=== PATIENT | male | born 1945 | race Caucasian/White ===

== ENCOUNTER 2018-01-10 12:03 | Emergency (ER) | payer MEDICARE, OTHER ==
[2018-01-10] MEDS ORDERED: Aspirin 81 MG Tab.Chew PO ONE (12:14)
[2018-01-10] MEDS: Nitroglycerin 0.4 MG Tab.SL SL PRN ×2 (13:40→14:18)
--- NOTE | 2018-01-10 14:57 | EDM.PDOC ---
ED HPI GENERAL MEDICAL PROBLEM - General Chief Complaint: Chest Pain Stated Complaint: CHEST PAIN Time Seen by Provider: 01/10/18 14:45 Source of Information: Reports: Patient History Limitations: Reports: No Limitations - History of Present Illness INITIAL COMMENTS - FREE TEXT/NARRATIVE: PT IS HAVING EPISODES OF LEFT SIDED CHEST PAIN. tHIS DID COME AND GO. hE WAS PAINFREE ON ARRIVAL. hE HAS NOT HAD A mI BUT HE HAS HAD A STROKE AND DID HAVE SOME SORT OF A STENT PLACED AFTER HE HAD THE STROKE. Onset: Today, Other (PAIN STARTED THIS AM. ) Duration: Hour(s): Location: Reports: Chest Quality: Reports: Pressure, Sharp Associated Symptoms: Reports: Chest Pain, Shortness of Breath Denies Pain Score (Numeric/FACES): 3 - Related Data Allergies Allergy/AdvReac Type Severity Reaction Status Date / Time Iodinated Contrast- Oral and Allergy Hives Verified 01/10/18 12:14 IV Dye iodixanol Allergy Rash Verified 01/10/18 12:14 morphine Allergy Cannot Verified 01/10/18 12:14 Remember Home Meds: Home Meds Aspirin [Halfprin] 81 mg PO DAILY 01/10/18 [History] Clopidogrel [Plavix] 1 tab PO DAILY 01/10/18 [History] Doxazosin [Doxazosin Mesylate] 8 mg PO DAILY 01/10/18 [History] Lisinopril 25 mg PO DAILY 01/10/18 [History] atorvaSTATin [Lipitor] 40 mg PO BEDTIME 01/10/18 [History] Past Medical History Cardiovascular History: Reports: High Cholesterol, Hypertension Genitourinary History: Reports: Renal Calculus Neurological History: Reports: CVA, Other (See Below) 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 - Infectious Disease History Infectious Disease History: Reports: Chicken Pox, Measles, Mumps - Past Surgical History HEENT Surgical History: Reports: Tonsillectomy GI Surgical History: Reports: Colonoscopy Male Surgical History: Reports: Lithotripsy (ESWL) Social & Family History - Tobacco Use Smoking Status *Q: Former Smoker Years of Tobacco use: 43 Packs/Tins Daily: 1.5 Used Tobacco, but Quit: Yes Month/Year Tobacco Last Used: 2004 Second Hand Smoke Exposure: No - Caffeine Use Caffeine Use: Reports: Coffee, Soda - Alcohol Use Days Per Week of Alcohol Use: 7 Number of Drinks Per Day: 3 Total Drinks Per Week: 21 - Recreational Drug Use Recreational Drug Use: No ED ROS GENERAL - Review of Systems Review Of Systems: See Below Constitutional: Reports: No Symptoms HEENT: Reports: No Symptoms Respiratory: Reports: No Symptoms Cardiovascular: Reports: Chest Pain Endocrine: Reports: No Symptoms GI/Abdominal: Reports: No Symptoms : Reports: No Symptoms Musculoskeletal: Reports: No Symptoms ED EXAM, GENERAL - Physical Exam Exam: See Below Free Text/Narrative:: Pt arrived having left ided chest pain. He did till the garden yesterday. He had chest pain this am and he went out and planted the garden and he came in and he had another episode of chest pain. This was different from anything he had before. Exam Limited By: No Limitations General Appearance: Alert, Mild Distress Ears: Normal TMs Nose: Normal Inspection Throat/Mouth: Normal Inspection Head: Atraumatic Neck: Normal Inspection Respiratory/Chest: No Respiratory Distress Cardiovascular: Regular Rate, Rhythm GI/Abdominal: Soft, Non-Tender (Male) Exam: Deferred Rectal (Males) Exam: Deferred Back Exam: Normal Inspection Extremities: Normal Inspection Neurological: Alert, Oriented, Normal Cognition Psychiatric: Normal Affect Course - Vital Signs Last Recorded V/S: Last Vital Signs Temp 36.4 C 01/10/18 12:13 Pulse 65 01/10/18 14:49 Resp 11 L 01/10/18 14:49 BP 160/81 H 01/10/18 14:49 Pulse Ox 96 01/10/18 14:49 - Orders/Labs/Meds Orders: Active Orders 24 hr Category Date Time Status EKG Documentation Completion [RC] ASDIRECTED Care 01/10/18 12:13 Active Chest 1V Frontal [CR] Stat Exams 01/10/18 14:48 Taken Nitroglycerin [Nitrostat] Med 01/10/18 12:14 Active 0.4 mg SL Q5M PRN EKG 12 Lead [EK] Routine Ther 01/10/18 12:13 Ordered Medication Orders Nitroglycerin (Nitrostat) 0.4 mg SL Q5M PRN PRN Reason: Chest Pain Last Admin: 01/10/18 14:18 Dose: 0.4 mg Admin: 01/10/18 13:40 Dose: 0.4 mg Labs: Laboratory Tests 05/29/18 05/29/18 05/29/18 Range/Units 12:15 12:15 12:15 WBC 7.1 (4.5-11.0) K/uL RBC 5.14 (4.30-5.90) M/uL Hgb 16.1 H (12.0-15.0) g/dL Hct 46.1 (40.0-54.0) % MCV 90 (80-98) fL MCH 31 (27-31) pg MCHC 35 (32-36) % Plt Count 137 L (150-400) K/uL Neut % (Auto) 66 (36-66) % Lymph % (Auto) 24 (24-44) % Catahoula % (Auto) 10 H (2-6) % Eos % (Auto) 1 L (2-4) % Baso % (Auto) 0 (0-1) % Sodium 141 (140-148) mmol/L Potassium 4.0 (3.6-5.2) mmol/L Chloride 105 (100-108) mmol/L Carbon Dioxide 23 (21-32) mmol/L Anion Gap 13.2 (5.0-14.0) mmol/L BUN 15 (7-18) mg/dL Creatinine 1.2 (0.8-1.3) mg/dL Est Cr Clr Drug Dosing 48.74 mL/min Estimated GFR (MDRD) 59 L (>60) Glucose 110 H (74-106) mg/dL Calcium 8.9 (8.5-10.1) mg/dL Total Bilirubin 0.7 (0.2-1.0) mg/dL AST 24 (15-37) U/L ALT 35 (12-78) U/L Alkaline Phosphatase 79 (46-116) U/L Creatine Kinase 80 (39-308) U/L Troponin I < 0.017 (0.000-0.056) ng/mL Total Protein 6.8 (6.4-8.2) g/dL Albumin 3.7 (3.4-5.0) g/dL Globulin 3.1 (2.3-3.5) g/dL Albumin/Globulin Ratio 1.2 (1.2-2.2) 01/10/18 Range/Units 14:54 WBC (4.5-11.0) K/uL RBC (4.30-5.90) M/uL Hgb (12.0-15.0) g/dL Hct (40.0-54.0) % MCV (80-98) fL MCH (27-31) pg MCHC (32-36) % Plt Count (150-400) K/uL Neut % (Auto) (36-66) % Lymph % (Auto) (24-44) % Catahoula % (Auto) (2-6) % Eos % (Auto) (2-4) % Baso % (Auto) (0-1) % Sodium (140-148) mmol/L Potassium (3.6-5.2) mmol/L Chloride (100-108) mmol/L Carbon Dioxide (21-32) mmol/L Anion Gap (5.0-14.0) mmol/L BUN (7-18) mg/dL Creatinine (0.8-1.3) mg/dL Est Cr Clr Drug Dosing mL/min Estimated GFR (MDRD) (>60) Glucose (74-106) mg/dL Calcium (8.5-10.1) mg/dL Total Bilirubin (0.2-1.0) mg/dL AST (15-37) U/L ALT (12-78) U/L Alkaline Phosphatase (46-116) U/L Creatine Kinase (39-308) U/L Troponin I < 0.017 (0.000-0.056) ng/mL Total Protein (6.4-8.2) g/dL Albumin (3.4-5.0) g/dL Globulin (2.3-3.5) g/dL Albumin/Globulin Ratio (1.2-2.2) Meds: Medications Generic Name Dose Route Start Last Admin Trade Name Freq PRN Reason Stop Dose Admin Nitroglycerin 0.4 mg 01/10/18 12:14 01/10/18 14:18 Nitrostat SL 0.4 mg Q5M PRN Administration Chest Pain Discontinued Medications Generic Name Dose Route Start Last Admin Trade Name Freq PRN Reason Stop Dose Admin Aspirin 324 mg 01/10/18 12:14 01/10/18 13:17 Aspirin PO 01/10/18 12:15 324 mg ONETIME ONE Administration - Re-Assessments/Exams Free Text/Narrative Re-Assessment/Exam: 01/10/18 16:04 pt arrived and at that time was pain free. He has not had reoccurrence of chest pain. He has had 2 sets of enzymes which were neg. His ekg reveals old changes. Departure - Departure Time of Disposition: 16:05 Disposition: Home, Self-Care 01 Condition: Fair Clinical Impression: Atypical chest pain Referrals: PCP,None [Primary Care Provider] - Forms: ED Department Discharge Additional Instructions: STRESS TEST TuesdayJanuary AT 0915 AM REGISTER AT HOSPITAL AT 900 AM Care Plan Goals: rtc if pt has recurrent pain. Low activity until pt has the stress test. tylenol or motrin for the chest aching. Cont other meds. - My Orders Last 24 Hours: My Active Orders 01/10/18 12:13 EKG Documentation Completion [RC] ASDIRECTED EKG 12 Lead [EK] Routine 01/10/18 12:14 Nitroglycerin [Nitrostat] 0.4 mg SL Q5M PRN 01/10/18 14:48 Chest 1V Frontal [CR] Stat - Assessment/Plan Last 24 Hours: My Active Orders 01/10/18 12:13 EKG Documentation Completion [RC] ASDIRECTED EKG 12 Lead [EK] Routine 01/10/18 12:14 Nitroglycerin [Nitrostat] 0.4 mg SL Q5M PRN 01/10/18 14:48 Chest 1V Frontal [CR] Stat
--- NOTE | 2018-01-11 08:49 | CR ---
Chest 1V Frontal FINDINGS: The heart and vascular structures are normal in appearance. No infiltrates or effusions are demonstrated. The skeletal structures are unremarkable. IMPRESSION: Negative exam.
== END 2018-01-10 16:25 | disposition home or self-care (01) ==
LOC: JP.ED 12:03
DX: R07.89 Other chest pain (principal); I10 Essential (primary) hypertension; E78.00 Pure hypercholesterolemia, unspecified; Z79.82 Long term (current) use of aspirin; Z79.899 Other long term (current) drug therapy; Z87.891 Personal history of nicotine dependence; Z91.041 Radiographic dye allergy status; Z88.5 Allergy status to narcotic agent
CPT/HCPCS: 36415; 71045; 80053; 82550; 84484; 85025; 93005; 99285; A9270

== ENCOUNTER 2019-02-28 09:25 | Emergency (ER) | payer MEDICARE ==
--- NOTE | 2019-02-28 11:23 | EDM.PDOC ---
ED HPI GENERAL MEDICAL PROBLEM - General Chief Complaint: General Stated Complaint: GROIN AREA PAINFUL HAD TEST HERE Time Seen by Provider: 02/28/19 09:55 Source of Information: Reports: Patient History Limitations: Reports: No Limitations - History of Present Illness INITIAL COMMENTS - FREE TEXT/NARRATIVE: 73-year-old male with worsening pain and swelling of the right testicle over the past several weeks. He's had some symptoms for the past 4 months but is progressively worse over the past several weeks. He had an ultrasound of the testicle yesterday, and has a referral to urology in 1 week. He is worse today than he was yesterday and he is "not going to make it". No fevers or chills. Onset: Gradual Duration: Week(s): Associated Symptoms: Reports: No Other Symptoms Right Groin Pain Score (Numeric/FACES): 5 - Related Data Allergies Allergy/AdvReac Type Severity Reaction Status Date / Time Iodinated Contrast- Oral and Allergy Hives Verified 02/28/19 09:45 IV Dye iodixanol Allergy Rash Verified 02/28/19 09:45 morphine Allergy Cannot Verified 02/28/19 09:45 Remember Home Meds: Home Meds Aspirin [Halfprin] 81 mg PO DAILY 01/10/18 [History] Clopidogrel [Plavix] 1 tab PO DAILY 01/10/18 [History] Doxazosin [Doxazosin Mesylate] 8 mg PO DAILY 01/10/18 [History] Lisinopril 25 mg PO DAILY 01/10/18 [History] atorvaSTATin [Lipitor] 40 mg PO BEDTIME 01/10/18 [History] Past Medical History HEENT History: Reports: None Cardiovascular History: Reports: High Cholesterol, Hypertension Gastrointestinal History: Reports: None Genitourinary History: Reports: Renal Calculus Neurological History: Reports: CVA, Other (See Below) 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 Hematologic History: Reports: Anticoagulation Therapy - Infectious Disease History Infectious Disease History: Reports: Chicken Pox, Measles, Mumps - Past Surgical History Head Surgeries/Procedures: Reports: None HEENT Surgical History: Reports: Tonsillectomy Cardiovascular Surgical History: Reports: None GI Surgical History: Reports: Colonoscopy Male Surgical History: Reports: Lithotripsy (ESWL) Neurological Surgical History: Reports: None Dermatological Surgical History: Reports: None Social & Family History - Tobacco Use Smoking Status *Q: Former Smoker Used Tobacco, but Quit: Yes Month/Year Tobacco Last Used: 1988 Second Hand Smoke Exposure: No - Caffeine Use Caffeine Use: Reports: Coffee - Alcohol Use Days Per Week of Alcohol Use: 7 Number of Drinks Per Day: 2 Total Drinks Per Week: 14 - Recreational Drug Use Recreational Drug Use: No ED ROS GENERAL - Review of Systems Review Of Systems: See Below Constitutional: Denies: Fever, Chills Respiratory: Denies: Shortness of Breath GI/Abdominal: Reports: Abdominal Pain (Starting to develop some right lower quadrant discomfort) ED EXAM, GENERAL - Physical Exam Exam: See Below Exam Limited By: No Limitations General Appearance: Alert, No Apparent Distress (Looks uncomfortable but not distressed) Respiratory/Chest: No Respiratory Distress (Male) Exam: Other (Patient has a large firm mildly erythematous right testicle and scrotum with tenderness to palpation in the groin but no warmth.) Skin Exam: Warm, Dry Course - Vital Signs Last Recorded V/S: Last Vital Signs Temp 96.2 F 02/28/19 09:48 Pulse 89 02/28/19 09:48 Resp 18 02/28/19 09:48 BP 151/71 H 02/28/19 09:48 Pulse Ox 98 02/28/19 09:48 - Re-Assessments/Exams Free Text/Narrative Re-Assessment/Exam: 02/28/19 13:23 Scrotal ultrasound from yesterday was reviewed. He has a significant hydrocele and spermatocele with swelling of the epididymis but no increased vascularization or evidence of infection. His case was discussed with urology, he was given 600 mg ibuprofen No. 30, and 10 hydrocodone for extra pain control and the urology department will call him if they can get him in sooner. Departure - Departure Time of Disposition: 11:29 Disposition: Home, Self-Care 01 Clinical Impression: Hydrocele, right, Testicular pain, right - Discharge Information Instructions: Hydrocele, Adult Referrals: PCP,None [Primary Care Provider] - Forms: ED Department Discharge Care Plan Goals: Take ibuprofen on a regular basis and add stronger pain medication if needed. You should be hearing from the urology department regarding moving up your scheduled appointment.
== END 2019-02-28 11:29 | disposition home or self-care (01) ==
LOC: JP.ED 09:25
DX: N50.811 Right testicular pain (principal); N43.3 Hydrocele, unspecified; E78.00 Pure hypercholesterolemia, unspecified; I10 Essential (primary) hypertension; Z91.041 Radiographic dye allergy status; Z88.5 Allergy status to narcotic agent; Z79.82 Long term (current) use of aspirin; Z79.02 Long term (current) use of antithrombotics/antiplatelets; Z79.899 Other long term (current) drug therapy; Z87.442 Personal history of urinary calculi; Z86.73 Personal history of transient ischemic attack (TIA), and cerebral infarction without residual deficits; Z79.01 Long term (current) use of anticoagulants; Z87.891 Personal history of nicotine dependence
CPT/HCPCS: 99283

== ENCOUNTER 2022-01-17 22:03 | Inpatient (IN) | payer MEDICARE, OTHER ==
[2022-01-17 23:22] LABS: TROPONIN I HIGH SENSITIVITY 782.5 pg/mL (<=60.3)
[2022-01-17] MEDS ORDERED: Heparin Sodium/D5W 25,000 UNITS/500 ML BAG IV SCH (23:45)
[2022-01-17] MEDS ORDERED: Nitroglycerin/D5W 25 MG/250 ML BOTTLE IV SCH (23:45)
[2022-01-17] MEDS ORDERED: Aspirin 81 MG Tab.Chew PO ONE (23:46)
[2022-01-17] MEDS ORDERED: Heparin Sodium 5,000 Units/ML Vial IVPUSH ONE (23:47)
[2022-01-18] MEDS ORDERED: Sodium Chloride 0.9% 10 ML Syringe FLUSH PRN (01:21)
[2022-01-18] MEDS ORDERED: Acetaminophen 325 MG Tab PO PRN (01:21)
[2022-01-18 02:01] LABS: CORONAVIRUS COVID-19 NAA NEGATIVE (NEGATIVE)
[2022-01-18] MEDS ORDERED: Lisinopril 20 MG Tab PO SCH (09:00)
[2022-01-18] MEDS ORDERED: Clopidogrel 75 MG Tab PO SCH (09:00)
[2022-01-18] MEDS ORDERED: Doxazosin 4 MG Tab PO SCH (09:00)
[2022-01-18] MEDS ORDERED: Aspirin 81 MG Tab.EC PO SCH (09:00)
[2022-01-18] MEDS ORDERED: atorvaSTATin 20 MG Tab PO SCH (21:00)
== END 2022-01-18 15:10 | DRG 282 ==
LOC: JP.ED 22:03 → JP.ICU 01-18 01:33 → UNDOADMIN 01-18 02:28
PROVIDERS: ADMIT Family Medicine; ATTEND Hospitalist
DX: I21.4 Non-ST elevation (NSTEMI) myocardial infarction (principal); E78.2 Mixed hyperlipidemia; I65.23 Occlusion and stenosis of bilateral carotid arteries; Z20.822 Contact with and (suspected) exposure to COVID-19; E78.00 Pure hypercholesterolemia, unspecified; Z88.8 Allergy status to other drugs, medicaments and biological substances; Z91.041 Radiographic dye allergy status; Z79.02 Long term (current) use of antithrombotics/antiplatelets; I10 Essential (primary) hypertension; Z79.899 Other long term (current) drug therapy; Z87.442 Personal history of urinary calculi; Z86.73 Personal history of transient ischemic attack (TIA), and cerebral infarction without residual deficits; Z79.82 Long term (current) use of aspirin; Z79.01 Long term (current) use of anticoagulants; Z87.891 Personal history of nicotine dependence
CPT/HCPCS: 0241U; 36415; 71046; 71046-26; 80053; 83605; 83690; 84484; 85025; 85730; 93005; 96365; 96366; 96368; 99285-25; A9270-GY; J1644; J3490